=== PATIENT | female | born 1985 | race Caucasian/White ===

== ENCOUNTER 2017-02-09 10:54 | Emergency (ER) | payer OTHER ==
[~2017-02-09] VITALS: Ht 175.3 cm; Wt 81.2 kg
[2017-02-09 11:03] VITALS: BP 119/84
[2017-02-09] MEDS ORDERED: PRED20TA PO (11:32)
--- NOTE | 2017-02-09 11:32 | PHYS DOC ---
Past History Past Medical History: Other Past Surgical History: No Surgical History Alcohol Use: None Drug Use: None Adult General Chief Complaint Chief Complaint: SKIN RASH HPI HPI Patient is a 31-year-old female who presents with itchy rash all over her body off and on for a week or 2. She will have a day of it and then it goes away but over the past few days it's been more constant. It's very itchy at times. When she scratches that it swells up. She's never had this before about 2 weeks ago. She denies any new medications. She does take metformin for PCOS as well as hormones. None of those are new. No recent antibiotics. She denies swelling of her tongue or mouth. Denies trouble swallowing. She did think earlier today that "watermelon tasted funny" but no objective symptoms. No wheezing or shortness of air. Review of Systems Review of Systems Constitutional: Denies fever or chills [] HENT: Denies nasal congestion or sore throat [] Respiratory: Denies cough or shortness of breath [] Integument: As in history of present illness Endocrine: Being treated for PCOS Allergies Allergies Allergies Coded Allergies Type Severity Reaction Last Updated Verified No Known Drug Allergies 02/09/17 No Physical Exam Physical Exam Constitutional: Well developed, well nourished, no acute distress, non-toxic appearance. Alert, mentating normally, vital signs stable, no dyspnea or other complaints. HENT: Normocephalic, atraumatic, bilateral external ears normal, oropharynx moist, no oral exudates, no swelling of lips, tongue, uvula, or other mouth structures, no oral lesions, nose normal. [] Eyes: conjunctiva normal, no discharge. [] Neck: Normal range of motion, no stridor. [] Cardiovascular:Heart rate regular rhythm, no murmur [] Lungs & Thorax: Bilateral breath sounds clear to auscultation , no wheezes Abdomen: Bowel sounds normal, soft, no tenderness, no masses, no pulsatile masses. [] Skin: Scattered erythematous urticarial papules present on the neck, chest, abdomen, both arms and both legs. Little if any present on the face or back. They have urticarial features and that they were puffy and tender become more puffy when rubbed or scratched, but they do not exactly look like standard urticaria. They are smaller and do not appear to come and go rapidly. Extremities: No tenderness, no cyanosis, no clubbing, ROM intact, no edema. [] Neurologic: Alert and oriented X 3, normal motor function, normal sensory function, no focal deficits noted. [] Current Patient Data Vital Signs Vital Signs Date Time Temp Pulse Resp B/P (MAP) Pulse Ox O2 Delivery O2 Flow Rate FiO2 02/09/17 11:03 97.5 96 18 98 EKG EKG [] Radiology/Procedures Radiology/Procedures [] Course & Med Decision Making Course & Med Decision Making Pertinent Labs and Imaging studies reviewed. (See chart for details) 31-year-old female presents with an itchy rash off and on that has urticarial features but does not look like exactly urticaria. She has no oral involvement, no wheezing. Vital signs are stable. This is been going off and on for more than a week and the current I'm not sure that there is any indication that epinephrine would help her today. No evidence could be found above might have started this. Discussed this with the patient. See instructions for plan. [] Dragon Disclaimer Dragon Disclaimer This chart was dictated in whole or in part using Voice Recognition software in a busy, high-work load, and often noisy Emergency Department environment. It may contain unintended and wholly unrecognized errors or omissions. Departure Departure: Impression: Primary Impression: Urticarial dermatitis Disposition: 01 HOME, SELF-CARE Condition: STABLE Referrals: BOBO REIS DO, [facility] (PCP) Additional Instructions: Today we were not able to determine what has caused your rash. Your rash has some features of hives but is not exactly like hives. We will treat with 3 medications to try to help the itching and make the rash go away. #1 standard antihistamine. If Benadryl makes you to sleepy, try taking Zyrtec in the morning and then Benadryl at bedtime. These are both ""H1 blockers" #2 "H2 blockers", another type of antihistamine. Purchase [id number] ranitidine 150 mg, take one twice a day. #3 prednisone. This is a steroid and use it commonly for itchy rashes. Take all of the above until better, then take prednisone for 2 more days. Take both antihistamines for another week. If the rash doesn't go away, or if it goes away and then returns, talk to your doctor about referral, you may need to see an heel cementer machine or timber feller. Scripts Prednisone (PREDNISONE) 20 Mg Tablet 40 MG PO DAILY for itchy rash for 7 Days, #14 TAB Prov: JAE JIMENEZ MD 02/09/17 JAE JIMENEZ MD Feb 09, 2017 11:32
== END 2017-02-09 11:36 | disposition home or self-care (01) ==
LOC: ER 10:54
DX: L30.8 Other specified dermatitis (principal); L50.9 Urticaria, unspecified; E28.2 Polycystic ovarian syndrome; Z79.899 Other long term (current) drug therapy
CPT/HCPCS: 99283